=== PATIENT | female | born 1990 | race Caucasian/White ===

== ENCOUNTER 2021-12-05 15:06 | Outpatient (CLI) | payer OTHER, SELFPAY ==
[2021-12-05 21:27] LABS: Cholesterol* 187 mg/dL (90-199)
== END 2021-12-05 15:07 | disposition home or self-care (01) ==
PROVIDERS: PCP Family Medicine; Visit Provider Family Medicine
DX: Z00.00 Encounter for general adult medical examination without abnormal findings (principal); H53.8 Other visual disturbances; R51.9 Headache, unspecified; D64.9 Anemia, unspecified
CPT/HCPCS: 82465; 84443

== ENCOUNTER 2022-07-24 13:08 | Outpatient (CLI) | payer OTHER, SELFPAY ==
[2022-07-24 16:10] LABS: Hepatitis B Surface Antigen* Negative (Negative)
[2022-07-24 16:17] LABS: HIV 1/2/P24 Combo Screen* Negative (Negative)
[2022-07-24 16:28] LABS: Hepatitis C Virus Antibody* Negative (Negative)
[2022-07-24 18:51] LABS: Chlamydia DNA Amplified* NOT DETECTED (No Detected); GC DNA Amplified* NOT DETECTED (No Detected)
[2022-07-26 09:58] LABS: Rapid Plasma Reagin (RPR) Non Reactive (Non Reactive)
[2022-07-26 14:08] LABS: Rubella Antibody IgG 26.7 IU/mL
== END 2022-07-24 13:09 | disposition home or self-care (01) ==
PROVIDERS: PCP Family Medicine; Visit Provider Physician Assistant
DX: Z34.91 Encounter for supervision of normal pregnancy, unspecified, first trimester (principal); Z3A.10 10 weeks gestation of pregnancy
CPT/HCPCS: 76817; 86592; 86703; 86762; 86787; 86803; 86850; 86900; 86901; 87086; 87340; 87491; 87591

== ENCOUNTER 2022-10-02 12:46 | Outpatient (CLI) | payer OTHER, SELFPAY ==
--- NOTE | 2022-10-02 13:00 | CRLHL7_ITS ---
For Patients: As a result of the Century Cures Act, medical imaging exams and procedure reports are released immediately into your electronic medical record. You may view this report before your referring provider. If you have questions, please contact your health care provider. INDICATION: Evaluate anatomy. COMPARISON: 07/24/2022 TECHNIQUE: Real time plummer scale imaging of the fetus was performed as well as color Doppler analysis of the umbilical vessels. FINDINGS: Sonographic imaging demonstrates a single living intrauterine gestation. Fetus demonstrates a regular cardiac rate of 155 beats per minute. Fetus has a vertex position. The placenta lies anteriorly without evidence of placenta previa. The edge of the placenta is located 6.8 cm from the internal cervical os. Amniotic fluid volume appears normal. Single deepest vertical pocket: 5.3 cm. The cervix is closed and measures 3.0 cm in length. The composite ultrasound gestational age is calculated at 20 weeks 6 days with an estimated sonographic due date of 02/13/2023. The estimated weight is 388 grams which lies at the 91st %. The following biometric measurements were obtained: Biparietal diameter: 4.8 cm/20 weeks 4 days 72nd% Head circumference: 18.1 cm/20 weeks 3 days 65th% Abdominal circumference: 16.1 cm/21 weeks 2 days 82nd% Femur length: 3.4 cm/20 weeks 5 days 69th% The HC/AC ratio measures: 1.1 C range (1.06-1.25) On anatomic survey, there is a normal appearance of the cerebral ventricles, cavum septi pellucidi, cisterna magna and cerebellum. The nose, lips, and facial profile appear normal. The cervical, thoracic and lumbar spine are well visualized and appear normal. There is a normal four-chamber heart view and the left and right ventricular outflow tracts appear normal. The diaphragm and stomach appear normal. The kidneys and bladder also appear normal. There is a normal three-vessel cord and cord insertion site. The four extremities appear normal. IMPRESSION: Normal OB ultrasound exam with concordance of clinical and sonographic dating. No intrinsic abnormalities noted on anatomic survey. Dictated by Fabio Scott MD @ 10/02/2022 6:14:12 PM (Electronically Signed)
== END 2022-10-02 12:47 | disposition home or self-care (01) ==
LOC: US 12:47
PROVIDERS: PCP Family Medicine; Visit Provider Obstetrics & Gynecology
DX: Z34.92 Encounter for supervision of normal pregnancy, unspecified, second trimester (principal); Z3A.20 20 weeks gestation of pregnancy
CPT/HCPCS: 76805

== ENCOUNTER 2022-12-07 11:20 | Outpatient (CLI) | payer OTHER, SELFPAY | END 2022-12-07 11:21 | disposition home or self-care (01) | LOC: NFLDREF 12-10 07:39 | PROVIDERS: PCP Family Medicine; Referring Provider Family Medicine; Visit Provider Physician Assistant | DX: Z34.93 Encounter for supervision of normal pregnancy, unspecified, third trimester (principal); Z3A.29 29 weeks gestation of pregnancy | CPT/HCPCS: 86592 ==

== ENCOUNTER 2022-12-30 13:51 | Outpatient (CLI) | payer OTHER, SELFPAY ==
--- NOTE | 2022-12-30 14:00 | CRLHL7_ITS ---
For Patients: As a result of the Century Cures Act, medical imaging exams and procedure reports are released immediately into your electronic medical record. You may view this report before your referring provider. If you have questions, please contact your health care provider. INDICATION: Third trimester scan, evaluate growth. COMPARISON: 10/02/2022 TECHNIQUE: Real time plummer scale imaging of the fetus was performed. FINDINGS: Sonographic imaging demonstrates a single living intrauterine gestation. Fetus demonstrates a regular cardiac rate of 138 beats per minute. Fetus has a position. The placenta lies anterior. Amniotic fluid volume appears normal and there is a single deepest vertical pocket: 7.3 cm. The estimated weight is 2713gm which lies at the greater than 97th %. On the prior OB ultrasound exam dated 10/02/2022 the estimated weight was at the 91st%. The BPD and AC greater than 97th percentile. HC 96th percentile. FL 75th percentile. The HC/AC ratio measures 1.02 range (0.93-1.08). IMPRESSION: Sonographic gestational age 35 weeks 6 days and sonographic due date 01/28/2023. Sonographic age is 22 days ahead of the clinical age. Estimated weight greater than 97th percentile. Abdominal circumference and BPD greater than 97th percentile. Dictated by Fabio Scott MD @ 12/30/2022 3:39:05 PM (Electronically Signed)
== END 2022-12-30 13:52 | disposition home or self-care (01) ==
LOC: US 13:52
PROVIDERS: PCP Family Medicine; Visit Provider Physician Assistant
DX: O36.63X0 Maternal care for excessive fetal growth, third trimester, not applicable or unspecified (principal); Z3A.35 35 weeks gestation of pregnancy
CPT/HCPCS: 76816

== ENCOUNTER 2023-01-27 12:57 | Outpatient (CLI) | payer OTHER, SELFPAY ==
[2023-01-28 13:31] LABS: Strep B DNA Probe POSITIVE (Negative)
[2023-01-28 13:32] LABS: Strep B Pen/Amox Allergy No
== END 2023-01-27 12:58 | disposition home or self-care (01) ==
LOC: NFLDREF 12:57
PROVIDERS: PCP Family Medicine; Visit Provider Obstetrics & Gynecology
DX: Z34.93 Encounter for supervision of normal pregnancy, unspecified, third trimester (principal); Z3A.39 39 weeks gestation of pregnancy
CPT/HCPCS: 76816; 87081; 87653

== ENCOUNTER 2023-02-15 07:18 | Inpatient (IN) | payer OTHER, SELFPAY ==
[2023-02-15] VITALS (29 sets, daily range): BP systolic 106–145; BP diastolic 52–89; PULSE 63–94; RESP 16–18; TEMP 36.4–37.2; O2SAT 92–99; BMI 33.7
[2023-02-15] MEDS: LACTATED RINGERS 1000 ML 1,000 ML 125 ML IV (07:50)
[2023-02-15] MEDS: AMPICILLIN 2 GM in 0.9 % SODIUM CHLORIDE Mini-bag 100 ML IVPB (07:51)
[2023-02-15] MEDS: OXYTOCIN 30 unit/500 ML in NS 30 UNIT/500 ML BAG IVPB (07:56)
--- NOTE | 2023-02-15 09:42 | P.LDBA_ITS ---
Subjective History of Present Illness Time Seen by Provider: 09:42 Date Seen: 02/15/23 Narrative: Patient is being admitted to Labor and Delivery for induction of labor due to suspected macrosomia. She is a 32 year old at 39.3 weeks gestation. Her full history and physical was dictated by Dr. Mistry on 01/27/23. Please see this for details. Concerns for shoulder dystocia in macrosomic fetus was discussed with the patient. This was previously addressed with her in clinic as well. She understands that the majority of the time shoulder dystocia is unpredictable emergency but some of the signs would be abnormal labor progression/poor descent. She does not meet criteria where we would recommend CD and patient states she does not want a CD unless it's absolutely necessary. Complaints this visit: None. Active movement. Denies LOF, vaginal bleeding or abnormal vaginal discharge. Minimal contractions. Specific Issues/Plans Spouse: Rai Mendez. Daughter: Shelby. Baby: [] Orthopedic physician legal administrative assistant for [employer] 1. Asthma, rare albuterol use 2. History of depression 3. EFW 91% on 20 week US. * F/U USN for EFW at 30-34 weeks: 12/30/2022, EFW 2713 g or 6 lb 0 oz (>97%), BPD >97%, HC 96%, AC >97%, FL 75%, SDP 7.3 cm 4. GBS positive. Ampicillin in labor. Flu shot: Completed this fall COVID: Vaccinated and boosted Tdap: 12/30/22 OB - Problem Based A/P Additional Plan (1) macrosomia affecting management of mother, antepartum: Status: Acute (2) : Status: Acute (3) Asthma: Status: Acute (4) Headache: Problem details: intermittent headaches, currently not complaining of a headache,? Migraine based on the fact that it is unilateral, for now continue observation, if he adaches persist and no explanation for right eye blurry vision based on laboratory and optometry evaluation consider MRI as the next step in evaluation, if she develops worst headache of life or associated neurological symptomatology will need to be seen in the emergency room Status: Acute (5) Blurred vision, right eye: Problem details: reassuring evaluation, await laboratory evaluation, glucose was normal, will plan referral to optometry Status: Acute Plan - Patient does not need cervical ripening - Will start Pitocin per protocol Delivery/Labor/Induction Plan Plan: induction Induction method: per pitocin protocol OB Exam Physical Exam Vital signs: Temp Pulse Resp BP 98.3 F 86 16 129/77 02/15/23 07:59 02/15/23 09:36 02/15/23 07:59 02/15/23 09:36 Narrative: Physical exam: General: No acute distress Psych: Alert and oriented x3, full affect HEENT: Normocephalic, atraumatic Lungs: Unlabored breathing Neuro: No focal deficit. Mentating appropriately Abdomen: Gravid. Soft, nontender, nondistended. No rebound or guarding. Carlos to 9-9.5# Pelvic exam: /-3 per RN consistent with last cervical check in clinic
[2023-02-15 10:28] LABS: Basophils Absolute Auto 0.05 K/uL (0.00-0.30); Basophils Percent Auto 0.5 % (0.0-3.0); Eosinophils Absolute Auto 0.12 K/uL (0.00-0.50); Eosinophils Percent Auto 1.2 % (0.0-7.0); Hematocrit 33.3 % (33.0-51.0); Hemoglobin* 10.7 gm/dL (12.0-16.0); Immature Granulocytes Abs Auto 0.02 K/uL (0.00-0.30); Immature Granulocytes Pct Auto 0.2 %; Lymphocytes Percent Auto 15.9 % (20-44); Mean Corpuscular HGB Conc 32 gm/dL (32-36); Mean Corpuscular Hemoglobin 27 pg (26-34); Mean Corpuscular Volume 85 fL (80-100); Monocytes Percent Auto 6.5 % (0.0-11.0); Neutrophils Percent Auto 75.7 % (42.0-72.0); Platelet Count* 316 K/uL (140-440); RDW Coefficient of Variation % 12.6 % (11.5-15.5); Red Blood Count 3.94 m/uL (4.00-5.20); White Blood Count* 10.06 K/uL (4.50-11.00)
[2023-02-15 10:40] LABS: Slide Review Reflex No
[2023-02-15] MEDS: AMPICILLIN 1 GM in 0.9 % SODIUM CHLORIDE Mini-bag 100 ML IVPB ×2 (11:44→15:45)
--- NOTE | 2023-02-15 12:01 | PM.OBPNL ---
Subjective Time Seen by Provider: 12:02 Date Seen: 02/15/23 Objective Vital Signs: Last Vital Signs Temp 97.6 F 02/15/23 11:38 Pulse 67 02/15/23 11:38 Resp 16 02/15/23 11:38 BP 129/64 02/15/23 11:38 Pelvic Exam Dilation (cm): 3 Effacement (%): 75 Station: ballotable Comments: head very ballotable. I did a bedside ultrasound to confirm cephalic presentation. head confirmed cephalic but not engaged. Contractions Contraction Frequency: q5-10 minutes. Soft Contraction pattern: Irregular Contraction intensity: Mild Pitocin Rate (mU/min): 5 Plan Plan: - Will increase Pitocin by 2u instead of 1u per protocol due to irregular and soft contractions.
[2023-02-15] MEDS: LACTATED RINGERS 1000 ML 1,000 ML 110 ML IV (18:14)
--- NOTE | 2023-02-15 18:57 | PM.ANBPRC ---
[facility] Medical History ?Z34.90 - Encounter for supervision of normal , unspecified, unspecified trimester (ICD-10) Headache ?R51.9 - Headache, unspecified (ICD-10) Normal spontaneous vaginal delivery ?O80 - Encounter for full-term uncomplicated delivery (ICD-10) Surgical History History of wisdom tooth extraction ?K08.409 - Partial loss of teeth, unspecified cause, unspecified class (ICD-10) Social History What is your current living situation?: I presently have a place to live Problems where you live: no known problems In the past 12 months, utilities in danger of being shut off: no In past 12 months, lack of transportation kept you from medical appts, meetings, work, or getting things needed for daily living: no In the past 12 mos, have been you worried that your food would run out before you had money to buy more?: never true In the past 12 mos, the food you bought just didn't last and you didn't have money to buy more?: never true Smoking Status: Never smoker How often does anyone, including family, friends and others, physically hurt you: never How often does anyone, including family, friends and others, insult or talk down to you: never How often does anyone, including family, friends and others, threaten you with harm: never How often does anyone, including family, friends and others, scream or curse at you: never Little interest or pleasure in doing things: not at all Feeling down, depressed, or hopeless: not at all Meds Home Medications and Allergies Home Medications Medication Instructions Recorded Confirmed Type valacyclovir 1 gram tablet 2,000 mg PO ONCE PRN 12/05/21 02/15/23 History multivitamin 2 tab PO QDAY 07/24/22 02/15/23 History Allergies Allergy/AdvReac Type Severity Reaction Status Date / Time Sulfa (Sulfonamide Allergy Severe rash Verified 02/03/23 08:56 Antibiotics) Results Labs Labs: Laboratory Results - last 24 hr 02/15/23 09:52 WBC 10.06 RBC 3.94 L Hgb 10.7 L Hct 33.3 MCV 85 MCH 27 MCHC 32 RDW Coeff of Irene 12.6 Plt Count 316 Neut % (Auto) 75.7 H Lymph % (Auto) 15.9 L Riley % (Auto) 6.5 Eos % (Auto) 1.2 Baso % (Auto) 0.5 Neut # (Auto) 7.60 H Lymph # (Auto) 1.60 Riley # (Auto) 0.70 Eos # (Auto) 0.12 Baso # (Auto) 0.05 Abs Immat Gran (auto) 0.02 Imm/Tot Granulo (auto) 0.2 Blood Type A Positive Antibody Screen POSITIVE Vital Signs Vital Signs: Last Vital Signs Temp 99 F 02/15/23 16:29 Pulse 94 02/15/23 18:55 Resp 18 02/15/23 16:29 BP 133/60 02/15/23 18:55 Pulse Ox 99 02/15/23 18:53 Weight: 100.868 kg Height: 172.72 cm Anesthesia Procedures Epidural Insertion Patient Location: OB Start Time: 18:15 Stop Time: 18:57 Start Date: 02/15/23 Stop Date: 02/15/23 Reason for Block: procedure for pain Patient Position: sitting Performed By: Min Abdi Preanesthetic Checklist: IV checked, risks and benefits discussed, surgical consent, monitors and equipment checked, pre-op evaluation, timeout performed and anesthesia consent Prep: chlorhexidine gluconate Monitoring: blood pressure monitoring, continuous pulse oximetry and heart rate Approach: midline Vertebral Space: lumbar (1-5) Needle Type: Tuohy needle Injection Technique: continuous catheter Needle gauge: 17 Needle Length (cm): 10 cm Needle Insertion Depth (cm): 7 Catheter Gauge: 19 Catheter Type: multi-orifice Catheter at skin depth (cm): 13 Test Dose Result: negative and lidocaine 1.5% with epinephrine 1 to 200,000
[2023-02-15] MEDS: lidocaine HCL 2 % JELLY (TOP) STERILE 6 ML TOPICAL (19:00)
[2023-02-15] MEDS: LANOLIN CREAM 1 APPLIC TOPICAL (19:10)
[2023-02-15] MEDS: LIDOCAINE 1 % PF 30 ML INJECTION (19:30)
[2023-02-15] MEDS: ROPIVACAINE 0.2% 100 ml 100 ML 12 MG EPIDURAL (19:37)
[2023-02-15] MEDS: ROPIVACAINE 0.2 % PF 10 ML INJ 20 MG EPIDURAL (19:38)
[2023-02-15] MEDS: LIDOCAINE 2% (PF) 5 ML VIAL EPIDURAL (19:39)
--- NOTE | 2023-02-15 19:50 | W.PM.VAGDEL1 ---
Procedure Delivery date: 02/15/23 Procedure Done: Global Procedure Details: Mary is a 32 year-old G 2 P 1001 admitted on 02/15/2023 at 39 and 3/7 weeks gestation for induction of labor. Cervical exam on admission was 3 cm/75 % effaced/ballotable station with membranes intact in for text presentation. Contractions were every 5-10 minutes. heart rate demonstrated baseline 120 bpm with moderate variability, + accelerations, - decelerations; a category I tracing. GBS +, received ampicillin for prophylaxis. SROM occurred at 1901 on 02/15/2023 with clear fluid. Labor Analgesia: Nitrous. Epidural - Did not have enough time to provide adequate pain control as she was complete and pushing within minutes after epidural placement. 10 cc of lidocaine used for laceration repair at the end. Pitocin: Yes Labor onset: 02/15/2023 at 1700 Complete: 02/15/2023 at 1858 Pushin02/15/2023 at 1900 heart tones during second stage were cat I At 191 a viable male infant delivered in vertex OA presentation over perineum via sponteneous vaginal delivery. Infant was placed on maternal abdomen. Cord was clamped and cut after a 30-60 second delay. Nose and mouth were bulb suctioned. Infant weight: pending. 8 at 1 minute and 9 at 5 minutes. Shoulder dystocia: No. Nuchal cord: Yes-loose and easily reducible. Placenta delivered spontaneously and complete at 191 with a 3 vessel cord. Complications: None. Mother and infant were stable after delivery. Laceration(s): 1st degree, repaired with 2-0 chromic suture in a continuous fashion. Estimated blood loss: 100 mL. Sponge and needles counts are correct. Mother and infant were stable at the time of this note. Mary is planning on . She and her are undecided on baby's name, either Tushar or Ashok.
[2023-02-16 04:16] VITALS: BP 133/82; PULSE 69; RESP 18; TEMP 36.8; O2SAT 96
[2023-02-16 06:18] LABS: Hemoglobin* 10.3 gm/dL (12.0-16.0)
--- NOTE | 2023-02-16 07:31 | PM.OBDSVD1 ---
DS: Providers Provider Time Seen by Provider: 07:31 Date Seen: 02/16/23 Date of admission: 02/15/23 07:18 Primary care physician: Maverick Urrutia MD Admitting Clinician: Alicia Mars MD Attending Physician on discharge: Alicia Mars MD Date of Discharge: 02/16/23 DS: Diagnosis Discharge Diagnosis (1) Normal spontaneous vaginal delivery: Status: Acute (2) First degree laceration of perineum during delivery, : Status: Acute (3) Lactating mother: Status: Acute Exam Narrative: Exam Narrative: VSS, afebrile GENERAL APPEARANCE: ?normal affect, alert, no distress MOOD: ?appropriate HEENT: normocephalic, neck supple, full ROM CHEST: ?Symmetrical chest wall movement. ?Normal respiratory effort. ?Clear to auscultation HEART: ?regular rate and rhythm ABDOMEN: ?soft, non-tender. Uterine fundus is firm, 1 below Umbilicus, Midline and is appropriate for the stage of recovery. ?Bowel sounds present. PERINEUM: ?mild edema of the perineum, there is a 1st degree laceration that is healing well. EXTREMITIES: ?normal and trace edema Const: Vital Signs, click to edit/add: Vital Signs - 24 hr 02/15/23 07:59 02/15/23 07:59 02/15/23 09:36 Temperature 98.3 F Pulse Rate 77 86 Pulse Rate [Blood Pressure Cuff] Respiratory Rate 16 Blood Pressure 127/74 129/77 Blood Pressure [Ri ght Arm] Pulse Oximetry Oxygen Delivery Mt thod 02/15/23 10:46 02/15/23 11:38 02/15/23 11:38 Temperature 97.6 F Pulse Rate 69 67 Pulse Rate [Blood Pressure Cuff] Respiratory Rate 16 Blood Pressure 137/73 129/64 Blood Pressure [Ri ght Arm] Pulse Oximetry Oxygen Delivery Me thod 02/15/23 12:50 02/15/23 13:56 02/15/23 14:56 Temperature Pulse Rate 70 68 68 Pulse Rate [Blood Pressure Cuff] Respiratory Rate Blood Pressure 128/69 134/89 123/63 Blood Pressure [Ri ght Arm] Pulse Oximetry Oxygen Delivery Mt thod 02/15/23 15:51 02/15/23 15:51 02/15/23 16:29 Temperature 98.3 F 99 F Pulse Rate 65 Pulse Rate [Blood Pressure Cuff] Respiratory Rate 16 18 Blood Pressure 139/75 Blood Pressure [Ri ght Arm] Pulse Oximetry Oxygen Delivery Me thod 02/15/23 18:12 02/15/23 18:37 02/15/23 18:39 Temperature Pulse Rate 63 63 Pulse Rate [Blood Pressure Cuff] Respiratory Rate Blood Pressure 128/63 143/80 H Blood Pressure [Ri ght Arm] Pulse Oximetry 97 92 Oxygen Delivery Mt thod 02/15/23 18:42 02/15/23 18:46 02/15/23 18:48 Temperature Pulse Rate 83 Pulse Rate [Blood Pressure Cuff] Respiratory Rate Blood Pressure 115/79 Blood Pressure [Ri ght Arm] Pulse Oximetry 96 99 Oxygen Delivery Mt thod 02/15/23 18:51 02/15/23 18:53 02/15/23 18:55 Temperature Pulse Rate 74 75 94 Pulse Rate [Blood Pressure Cuff] Respiratory Rate Blood Pressure 121/58 L 127/59 L 133/60 Blood Pressure [Ri ght Arm] Pulse [facility]ximetry [facility] 18[facility]57 02/15/23 18:58 02/15/23 19:15 Temperature Pulse Rate 94 83 Pulse Rate [Blood Pressure Cuff] Respiratory Rate Blood Pressure 118/58 L 118/68 Blood Pressure [Ri ght Arm] Pulse Oximetry 94 97 [facility] 19:15 02/15/23 19:30 02/15/23 19:30 Temperature 98.5 F Pulse Rate 73 Pulse Rate [Blood Pressure Cuff] Respiratory Rate 18 18 Blood Pressure 106/52 L Blood Pressure [Ri ght Arm] Pulse [facility]ximetry [facility] 19:45 02/15/23 19:45 02/15/23 20:00 Temperature Pulse Rate 75 77 Pulse Rate [Blood Pressure Cuff] Respiratory Rate 18 Blood Pressure 109/57 L 116/58 L Blood Pressure [Ri ght Arm] Pulse Oximetry Oxygen Delivery Mt thod 02/15/23 20:00 02/15/23 20:15 02/15/23 20:15 Temperature Pulse Rate 75 Pulse Rate [Blood Pressure Cuff] Respiratory Rate 18 18 Blood Pressure 117/66 Blood Pressure [Ri ght Arm] Pulse Oximetry Oxygen Delivery Mt thod 02/15/23 20:30 02/15/23 20:30 02/15/23 20:30 Temperature Pulse Rate 66 Pulse Rate [Blood Pressure Cuff] Respiratory Rate 18 Blood Pressure 113/67 Blood Pressure [Ri ght Arm] Pulse Oximetry Oxygen Delivery Me thod 02/15/23 20:45 02/15/23 20:45 02/15/23 20:45 Temperature Pulse Rate 68 Pulse Rate [Blood Pressure Cuff] Respiratory Rate 18 Blood Pressure 115/63 Blood Pressure [Ri ght Arm] Pulse Oximetry Oxygen Delivery Me thod 02/15/23 21:00 02/15/23 21:00 02/15/23 21:00 Temperature 98.3 F Pulse Rate 70 Pulse Rate [Blood Pressure Cuff] Respiratory Rate 18 Blood Pressure 114/61 Blood Pressure [Ri ght Arm] Pulse Oximetry Oxygen Delivery Me thod 02/15/23 23:50 02/16/23 04:16 Temperature 98 F 98.2 F Pulse Rate Pulse Rate [Blood Pressure Cuff] 75 69 Respiratory Rate 18 18 Blood Pressure Blood Pressure [Ri ght Arm] 145/87 H 133/82 Pulse Oximetry 96 96 Oxygen Delivery Me thod Room Air Room Air Documenting provider has reviewed patient's vital signs: yes OB - DS: Summary Hospital Course Hospital Course: Mary is a 32 y.o. G 2 P 2 who was admitted to [facility] for IOL for macrosomia. ?She had an uncomplicated NVD The patient feels well. ?The pain is well controlled with current medications. ?She has no new complaints. ?She is breast feeding and reports things are going well.? the patient has done well.? Vitals have been stable.? She did have 1 elevated BP yesterday evening. She has remained afebrile.? Has a good appetite, is tolerating a general diet. ?She is voiding without difficulty.? She is passing gas and has not had a bowel movement.? She is ambulating and denies any dizziness.? Has Small amount of rubra lochia. She is undecided on prevention, as she has previously used nuvaring. Problems: Mildly elevate BP yesterday evening Hx of PP depression w/ previous . Not treated with medication. plan: Discharge home with baby. Follow up in 2 weeks and 6 weeks. , may follow up with if needed Will continue to monitor BPs throughout today and consider labs if they become elevated again. Aware of signs of PP depression and to be seen if it occurs again. Brief review of options of therapy and medication if needed. Peripartum Data delivery method: Vaginal Laceration description: Perineal - 1st Degree Infant Gender: Male Discharge Plan: Home Status at Discharge Functional status at discharge: independent ambulation Overall status at discharge: patient is progressing back to baseline Time Spent with Patient Time attestation: Total time spent providing and/or coordinating discharge services: Time spent: Less than 30 minutes Discharge Plan Discharge Disposition: Home, Self-Care Date of Admission: 02/15/23 07:18 Attending Provider on Discharge: Monika Klein Primary Care Provider: Maverick Urrutia Condition: Stable Anticipated Discharge Date/Time: 02/16/23 20:30 Discharge Medications: New docusate sodium 100 mg Capsule 100 mg PO BID PRNQty: 100 0RF Rx Instructions: Take 1 cap 1-2 times a day as needed for constipation ibuprofen 600 mg Tablet 600 mg PO Q6H PRNQty: 60 0RF Continued multivitamin Tablet 2 tab PO QDAY Patient Comments: gummies with NO iron Discontinued valacyclovir 1 gram tablet 2,000 mg PO ONCE PRN Rx Instructions: Take 2 grams at onset of symptoms and repeat in 24 hours. Discharge Orders: Discharge Order (Routine); Ordered 02/16/23 Ordered By: Monika Klein Patient Education: OB Over the Counter Medication Information, OB Vaginal/Breast Feeding Additional Instructions: Follow up in 2 weeks and 6 weeks in the office Activity Level: Activity as Tolerated Discharge Diet: Regular Follow Up Appointments: Maverick Urrutia MD [Primary Care Provider] - Forms: [employer] Info Instructions
[2023-02-16 07:32] VITALS: BP 124/76; PULSE 70; RESP 16; TEMP 36.6; O2SAT 94
[2023-02-16] MEDS: DOCUSATE SODIUM 100 MG CAPSULE PO (09:18)
[2023-02-16 11:44] VITALS: BP 130/82; PULSE 67; RESP 16; TEMP 36.8; O2SAT 96
[2023-02-16 15:40] VITALS: BP 123/77; PULSE 70; RESP 16; TEMP 36.9; O2SAT 97
== END 2023-02-16 20:30 | disposition home or self-care (01) | DRG 807 ==
PROVIDERS: Admitting Provider Obstetrics & Gynecology; PCP Family Medicine; Visit Provider Obstetrics & Gynecology
DX: O36.63X0 Maternal care for excessive fetal growth, third trimester, not applicable or unspecified (principal); Z37.0 Single live birth; O99.824 Streptococcus B carrier state complicating childbirth; O70.0 First degree perineal laceration during delivery; J45.909 Unspecified asthma, uncomplicated; H53.8 Other visual disturbances; R51.9 Headache, unspecified; Z86.59 Personal history of other mental and behavioral disorders; Z3A.39 39 weeks gestation of pregnancy
CPT/HCPCS: 01967; 36415; 85018; 85025; 86850; 86870; 86880; 86900; 86901; 86905; 86906; A9270; J0290; J2001; J2371; J2795; J7120

== ENCOUNTER 2023-05-19 09:00 | Outpatient (RCR) | payer OTHER, SELFPAY | END 2023-08-31 10:25 | disposition home or self-care (01) | PROVIDERS: PCP Family Medicine; Visit Provider Obstetrics & Gynecology | DX: N81.10 Cystocele, unspecified (principal); N81.6 Rectocele; N39.3 Stress incontinence (female) (male); M62.81 Muscle weakness (generalized); R27.8 Other lack of coordination; Z51.89 Encounter for other specified aftercare | CPT/HCPCS: 97110; 97112; 97140; 97161; 97535 ==